=== PATIENT | female | born 1980 | race Caucasian/White ===

== ENCOUNTER 2016-08-23 19:21 | Emergency (ER) | payer OTHER ==
[~2016-08-23] VITALS: Ht 154.9 cm; Wt 104.4 kg
[~2016-08-23 19:21] MED LIST: AMBIEN10 MG PO; ATARAX,VISTARIL25 MG PO; BENTYL10 MG PO; BENTYL20 MG PO; BUSPAR15 MG PO; BUSPAR5 MG PO; CHLORPROMAZINE25 MG PO; CITALOPRAM HBR10 MG PO; CITALOPRAM HBR20 MG PO; CLONAZEPAM0.5 MG PO; CLONAZEPAM1 MG PO; COLACE100 MG PO; COMPAZINE10 MG; DICYCLOMINE HCL10 MG PO; ELAVIL25 MG PO; ESCITALOPRAM OX20 MG PO; FENOFIBRATE54 M1 PO; FLAGYL500 MG PO; FLEXERIL10 MG PO; FLONASE ALLERG9.9 ML BOTH NARES; FUROSEMIDE20 MG PO; Flagyl PO; Flora-Q,Risaquad PO; GABAPENTIN100 MG PO; GABAPENTIN300 MG PO; HYDROXYZINE HCL50 MG PO; HYDROXYZINE PAM25 MG PO; HYDROXYZINE PAM50 MG PO; INDERAL20 MG PO; JOLESSA1 EACH PO; KEFLEX500 MG PO; KLONOPIN0.5 M1 PO; KlonoPIN PO; LAMICTAL150 M1 PO; LEXAPRO20 MG PO; LITHIUM CARBON300 M1; LITHIUM CARBON300 MG PO; LITHIUM CARBON600 MG PO; MOTRIN600 MG PO; NAPROSYN500 MG PO; NORCO 5/3251 TABLET PO; OMEPRAZOLE40 M1 PO; ONDANSETRON HCL4 M1 PO; PEN-VEE K,VEET250 MG PO; PERCOCET 5/31 TABLET PO; PREDNISONE5 M1 PO; PRILOSEC20 MG PO; PROMETHAZINE HC25 M1 PO; QUASENSE1 EACH PO; Questran PO; REMERON15 M2 PO; RISPERDAL3 MG PO; SAPHRIS10 MG SL; SEASONALE,JO1 TABLET PO; SEROQUEL100 MG PO; THORAZINE25 MG PO; TOPAMAX25 MG PO; TOPAMAX50 MG PO; ULTRAM50 MG PO; WELLBUTRIN100 MG PO; ZOFRAN4 MG PO; ZOLOFT50 MG PO; ZOLPIDEM TARTRAT5 MG PO
[2016-08-23 19:56] LABS: HEMATOCRIT 40.2 % (36.0-46.0); MCH 29.9 PG (29.0-34.0); MCHC 32.8 G/DL (30.0-36.0); MEAN PLAT.VOLUME 9.1 uM^3 (9.5-12.4); PLATELET COUNT 455 K/uL (156-360); RBC DIS.WIDTH-CV 13.9 % (11.8-14.6); RBC DIS.WIDTH-SD 46.1 % (39-53); RED BLOOD COUNT 4.42 M/uL (3.80-5.20); WHITE BLOOD COUNT 13.8 K/uL (4.1-10.2)
[2016-08-23 20:05] LABS: CHLORIDE 110 mEq/L (99-109); POTASSIUM 4.1 mEq/L (3.7-5.4); SODIUM 143 mEq/L (136-147)
[2016-08-23 20:09] LABS: TOTAL BILIRUBIN 0.2 mg/dL (0.0-1.0)
[2016-08-23 20:21] LABS: QUANTITATIVE HCG < 4.0 MIU/ML
[2016-08-23 20:40] LABS: GLUCOSE 96 mg/dL (70-99)
[2016-08-23 20:41] LABS: ANION GAP 13 MEQ/L (2-14)
[2016-08-23 20:43] LABS: ALKALINE PHOSPHATASE 111 IU/L (3-129); GFR ESTIMATE (CALCULATED) > 59 mL/min/
[2016-08-23 20:44] LABS: UREA NITROGEN (BUN) 10 mg/dL (9-23)
[2016-08-23 20:45] LABS: ADD MIUA? YES; BILIRUBIN NEGATIVE; BLOOD SMALL; COLOR YELLOW ((YELLOW)); GLUCOSE (STRIP) NEGATIVE; KETONES NEGATIVE; LEUKOCYTES MODERATE; NITRITE POSITIVE; PROTEIN (STRIP) 30; SPECIFIC GRAVITY 1.021 (1.000-1.030); UROBILINOGEN 0.2 MG/DL (0.2-1.0)
[2016-08-23 20:53] LABS: BACTERIA 2+ /HPF; EPITHELIAL CELLS 1+ /HPF; MUCUS 1+ /LPF; WHITE BLOOD CELLS TNTC /HPF (0-5); WHITE BLOOD CELLS CLUMP RARE /HPF (0-5)
[2016-08-23] MEDS ORDERED: PYRIDIUM200 MG PO (20:59)
[2016-08-23] MEDS ORDERED: KEFLEX500 MG PO (20:59)
[2016-08-23] MEDS ORDERED: NAPROSYN500 MG PO (20:59)
[2016-08-23 21:14] VITALS: BP 135/88
== END 2016-08-23 21:15 | disposition home or self-care (01) ==
LOC: EME 19:21
PROVIDERS: Nurse Practitioner Family
DX: N39.0 Urinary tract infection, site not specified (principal); M79.7 Fibromyalgia; F17.200 Nicotine dependence, unspecified, uncomplicated
CPT/HCPCS: 80053; 81003; 84702; 85027; 87493; 99281; 99284; J1885; Q0177

== ENCOUNTER 2017-04-14 15:42 | Emergency (ER) | payer OTHER ==
[~2017-04-14] VITALS: Ht 154.9 cm; Wt 100.2 kg
[~2017-04-14 15:42] MED LIST changes: +PYRIDIUM200 MG PO
[2017-04-14 17:23] LABS: BASOPHIL COUNT 0.1 K/uL (0-0.1); EOSINOPHIL (%) 1.8 % (0-5); EOSINOPHIL COUNT 0.2 K/uL (0-0.3); HEMATOCRIT 43.2 % (36.0-46.0); IMMATURE GRANULOCYTE (%) 0.6 % (0.0-0.7); IMMATURE GRANULOCYTE COUNT 0.1 K/uL; INSTRUMENT ABS NEUTROPHIL CT 7.4 K/uL; LYMPHOCYTE COUNT 3.7 K/uL (1.0-2.8); MCH 30.9 PG (29.0-34.0); MCHC 34.5 G/DL (30.0-36.0); MCV 89.6 FL (83-99); MEAN PLAT.VOLUME 9.4 uM^3 (9.5-12.4); MONOCYTE (%) 6.2 % (3-12); MONOCYTE COUNT 0.8 K/uL (0-0.8); NEUTROPHIL (%) 60.9 % (45-76); NEUTROPHIL COUNT 7.4 K/uL (1.8-6.4); NRBC (%) 0.2 /100 WBC (0-0); PLATELET COUNT 383 K/uL (156-360); RBC DIS.WIDTH-SD 42.8 % (39-53); RED BLOOD COUNT 4.82 M/uL (3.80-5.20); WHITE BLOOD COUNT 12.1 K/uL (4.1-10.2)
[2017-04-14 17:29] LABS: ADD MIUA? YES; BILIRUBIN NEGATIVE; BLOOD NEGATIVE; COLOR YELLOW ((YELLOW)); GLUCOSE (STRIP) NEGATIVE; KETONES NEGATIVE; LEUKOCYTES NEGATIVE; NITRITE NEGATIVE; PROTEIN (STRIP) NEGATIVE; SPECIFIC GRAVITY 1.018 (1.000-1.030); UROBILINOGEN 0.2 MG/DL (0.2-1.0)
[2017-04-14 17:35] LABS: CHLORIDE 107 mEq/L (99-109); POTASSIUM 4.1 mEq/L (3.7-5.4); SODIUM 140 mEq/L (136-147)
[2017-04-14 17:38] LABS: GLUCOSE 85 mg/dL (70-99)
[2017-04-14 17:39] LABS: ANION GAP 13 MEQ/L (2-14); TOTAL BILIRUBIN 0.4 mg/dL (0.0-1.0)
[2017-04-14 17:41] LABS: ALKALINE PHOSPHATASE 142 IU/L (3-129); GFR ESTIMATE (CALCULATED) > 59 mL/min/
[2017-04-14 17:42] LABS: UREA NITROGEN (BUN) 9 mg/dL (9-23)
[2017-04-14 17:45] LABS: LIPASE 32 U/L (1.0-51.0)
[2017-04-14 17:50] LABS: BACTERIA RARE /HPF; EPITHELIAL CELLS 2+ /HPF; MUCUS TRACE /LPF; RED BLOOD CELLS 0-5 /HPF (0-5); WHITE BLOOD CELLS 0-5 /HPF (0-5)
[2017-04-14 17:51] LABS: DIRECT BILIRUBIN 0.1 mg/dL (0.0-0.3)
[2017-04-14] MEDS ORDERED: BENTYL20 MG PO (19:44)
[2017-04-14] MEDS ORDERED: ZOFRAN ODT4 MG PO (19:44)
[2017-04-14 20:12] VITALS: BP 107/76
== END 2017-04-14 20:16 | disposition home or self-care (01) ==
LOC: EME 15:42
PROVIDERS: Physician Assistant
DX: R10.9 Unspecified abdominal pain (principal); R11.2 Nausea with vomiting, unspecified; R19.7 Diarrhea, unspecified; M79.7 Fibromyalgia; F41.9 Anxiety disorder, unspecified; F32.9 Major depressive disorder, single episode, unspecified; F17.200 Nicotine dependence, unspecified, uncomplicated; Z88.2 Allergy status to sulfonamides; Z88.8 Allergy status to other drugs, medicaments and biological substances
CPT/HCPCS: 74177; 80048; 80076; 81003; 83690; 85025; 87329; 87493; 87506; 99281; 99284; J0500; J1885; J7030